=== PATIENT | male | born 1935 | race Two or more races ===

== ENCOUNTER 2023-11-01 17:14 | Inpatient (IN) | payer OTHER ==
[~2023-11-01] VITALS: Ht 167.6 cm; Wt 89.8 kg
--- NOTE | 2023-11-01 17:59 | NUR ---
PTE ALERTA Y ORIENTADO X3 EL CUAL VIENE EN COMPANIA DE PARAMDICOS Y FAMILIAR. AL MOMENTO FAMILIAR REFIERE QUE TRAEN PTE A CAUSA DE MELENA . SE MIDEN S/V Y SE UBICA.
--- NOTE | 2023-11-01 20:02 | NUR ---
SE RECIBE PTE ALERTA Y ORIENTADO A UNIDAD DE ICU-2, SE CANALIZA EN BRAZO IZQUERDO CON ANGIO #20, PTE VIENE CANALIZADO PREVIAMENTE EN BRAZO DERECHO CON ANGIO #20, AMBOS SE ENCUENTRAN PATENTES, LIBRES DE EDEMA Y ERITEMA. SE MANTIENE EN OBSERVACION POR CAMBIOS SINGIFICATIVOS.
[2023-11-01] MEDS ORDERED: OCTREOTIDE ACETATE 0.5 MG/ML (500MCG/ML) AMPUL IV ONE (20:45)
[2023-11-01] MEDS ORDERED: PANTOPRAZOLE SODIUM 40 MG/VIAL VIAL IV PUSH ONE (20:45)
[2023-11-01] MEDS ORDERED: RINGERS SOLUTION,LACTATED 1,000 ML IV SCH (20:45)
[2023-11-01 21:55] LABS: MEAN CELL VOLUME 97.3 fL (80.0-100.00); MEAN CORPUSCULAR HGB CONC 33.6 g/dl (32.0-36.0); PLATELET COUNT 192 K/uL (150-450); RED CELL DISTRIBUTION WIDTH 13.7 % (11.5-14.5)
[2023-11-01 22:07] LABS: HEMATOCRIT 17.5 % (39.0-48.0); HEMOGLOBIN 5.9 g/dL (13-16.00); MEAN CORPUSCULAR HEMOGLOBIN 32.7 pg (27.00-32.0)
[2023-11-01 22:09] LABS: INR 1.2; PARTIAL THROMBOPLASTIN TIME 21.5 SECONDS (22.0-34.0); PROTHROMBIN TIME 12.4 SECONDS (9.0-11.5)
[2023-11-01 22:13] LABS: ALBUMIN 2.5 gm/dL (3.4-5.0); BILIRUBIN TOTAL 0.36 mg/dL (0.3-1.2); CALCIUM 8.5 mg/dL (8.5-10.1); CREATININE SERUM 1.73 mg/dL (0.70-1.30); GFR 37.38; GLOBULINA 2.4 G/DL (2.4-3.5); POTASSIUM 4.64 mEq/L (3.5-5.1); TOTAL PROTEIN 4.9 gm/dL (6.4-8.2)
[2023-11-02] MEDS ORDERED: OCTREOTIDE ACETATE 1,250 MCG in 0.9 % SODIUM CHLORIDE 250 ML IV SCH (00:15)
[2023-11-02] MEDS ORDERED: PANTOPRAZOLE SODIUM 80 MG in 0.9 % SODIUM CHLORIDE 100 ML IV SCH (00:15)
[2023-11-02] MEDS ORDERED: METRONIDAZOLE/SODIUM CHLORIDE 500 MG/100 ML PIGGYBACK IV ONE (00:30)
--- NOTE | 2023-11-02 01:27 | NUR ---
11PM: SE RECIBE PACIENTE ALERTA Y DESORIENTADAO X3. EL MISMO CONECTADO A MONITOR CARDIACO Y OXIMETRIA DE PULSO. EL MISMO CON CANULA A 3 L/MIN Y HIPERVENTILANDO. EL MISMO CANALIZADO EN MANO ANDER # 20 PATENTE Y HANH DE DOLOR BAJANDO CON UN R/L @ 250 ML/HR. Y EN MANO DERECHA #22 PATENTE Y HANH DE DOLOR. EL MISMO PENDIENTE A CT SCAN ABDOMEN/ PELVICO Y CON 3ER TUBO PENDIENTE A REQUISICION DE MARLENE. EL MISMO CON COPELAND DRENANADO ORINA AMARILLA REYNOLD SIN HEMATURIA 11:25PM: SE CANALIZADA EN BRAZO DERECHO # 18 Y SE DEEP 3ER TUBO DE REQUISICION DE MARLENE. DR. PEREA LLEGA A LA UNIDAD CON TRANSFUCION DE MARLENE UNCROSSMATCHED RH O POSITIVO CON [phone]. SE NOTIFICA A DR. PEREA QUE EL PACIENTE NO TIENE CONSENTIMIENTO DE TRANSFUCION FIRMADO BIGG QUE LA FAMILIAR FUE LLAMADA PARA QUE LO FIRMARA. 11:30PM: SE COMIENZA TRANSFUCION DE MARLENE 12:10AM: FAMILIAR DE PACIENTE FIRMA CONSTIMIENTO DE TRANSFUCION Y DNR+DNI Y SE COLOCA STRONG A PACIENTE. 1AM: SE ENCUENTRA CANALIZACION DE PACIENTE # 18 EN BRAZO DERECHO DE PACIENTE INFILTRADO SE DETIENE INFUSION DE INMEDIATO Y SE REMUEVE ANGIO Y SE COLOCA SOLOSITE SE NOTIFICA A DR. PEREA. SE CANALIZA N[place]VAMENTA PACIENTE X2 #20 EN BRAZO DERECHO PATENTE Y SE CONTINUA TRANSFUCION. SE RESTRINGE PACIENTE X2 EN EXTREMIDADES SUPERIORES
[2023-11-02 01:50] LABS: URINE APPEARANCE Clear; URINE BILIRRUBIN Negative (NEGATIVE); URINE BLOOD Negative; URINE COLOR Yellow; URINE GLUCOSE Negative (NEGATIVE); URINE LEUKOCYTE Trace; URINE NITRATE Negative; URINE PROTEIN Negative (NEGATIVE); URINE UROBILINOGEN 0.2 E.U./dl
[2023-11-02 01:54] LABS: URINE EPITHELIAL CELLS 15.7 uL (0.0-38.8); URINE RBC 4.2 uL (0.0-20.8); URINE WBC 12.6 uL (0.0-23.2)
[2023-11-02] MEDS ORDERED: NOREPINEPHRINE BITARTRATE 8 MG in DEXTROSE 5 % IN WATER 250 ML IV SCH (05:30)
--- NOTE | 2023-11-02 05:59 | NUR ---
2:30AM: TERMINA TRANSFUCION DE MARLENE. 5AM PACIENTE PRESENTA EVENTO DE HIPOTENSION SE NOTIFICA A DR. LIVE EL MISMO ORDENA DRIP DE LEVOPHED 8MG/250ML
--- NOTE | 2023-11-02 06:48 | NUR ---
6:35AM: SE COMIENZA PRIMERA UNIDAD DE PRBC
[2023-11-02] MEDS ORDERED: ONDANSETRON HCL 4 MG in 0.9 % SODIUM CHLORIDE 50 ML IV PRN (08:00)
[2023-11-02] MEDS ORDERED: INSULIN LISPRO 1,000 UNIT/10 ML UNITS SUBCUTANEO PRN (08:15)
[2023-11-02] MEDS ORDERED: RINGERS SOLUTION,LACTATED 500 ML IV ONE (08:15)
[2023-11-02] MEDS ORDERED: PHYTONADIONE 10 MG/ML AMPUL IV ONE (08:15)
[2023-11-02] MEDS ORDERED: DEXTROSE 50 % IN WATER 0.5 G/ML DISP.SYRIN IV PRN (08:15)
[2023-11-02] MEDS ORDERED: MEROPENEM 500 MG/VIAL VIAL IV SCH (09:00)
[2023-11-02] MEDS ORDERED: DEXTROSE 50 % IN WATER 0.5 G/ML VIAL IV PRN (09:45)
[2023-11-02 10:34] LABS: ABG PH 7.379 (7.35-7.45); ABG pCO2 38.7 mmHg (35-45)
[2023-11-02 10:35] LABS: ABG PO2 52.7 mmHg (80-100); BASE EXCESS -2.4 mmol/l; SaO2 85.9 %
[2023-11-02 10:36] LABS: BICARBONATE 22.3 mmol/l (23-25); Tco2 23.5 mmol/l
[2023-11-02 10:37] LABS: allen test SATISFACTORY; o2 21 %; puncture site RADIAL RIGHT
[2023-11-02 13:52] LABS: C-REACTIVE PROTEIN 1.22 MG/DL (0.00-0.29)
[2023-11-02 14:06] LABS: FERRITIN 2182.4 NG/ML (26-388)
[2023-11-02] MEDS ORDERED: AA 4.25%/CAL/LYTES/DEXT 5% 1,000 ML PERIFERAL SCH (17:00)
[2023-11-02] MEDS ORDERED: REMDESIVIR 100 MG VIAL IV ONE (18:45)
[2023-11-03] MEDS ORDERED: OCTREOTIDE ACETATE 1,250 MCG in 0.9 % SODIUM CHLORIDE 250 ML IV SCH (01:00)
[2023-11-03 02:08] LABS: ob POSITIVE (NEGATIVE)
[2023-11-03 04:32] LABS: HEMATOCRIT 34.2 % (39.0-48.0); MEAN CELL VOLUME 88.2 fL (80.0-100.00); MEAN CORPUSCULAR HEMOGLOBIN 30.9 pg (27.00-32.0); MEAN CORPUSCULAR HGB CONC 35.1 g/dl (32.0-36.0); PLATELET COUNT 146 K/uL (150-450); RED BLOOD COUNT 3.88 M/uL (4.00-6.00); RED CELL DISTRIBUTION WIDTH 15.1 % (11.5-14.5)
[2023-11-03 05:15] LABS: CALCIUM 8.2 mg/dL (8.5-10.1); CREATININE SERUM 1.49 mg/dL (0.70-1.30); GFR 44.41; POTASSIUM 3.84 mEq/L (3.5-5.1)
[2023-11-03] MEDS ORDERED: REMDESIVIR 100 MG VIAL IV SCH (09:00)
[2023-11-04] MEDS ORDERED: LORazepam 2 MG/ML VIAL IV PUSH PRN (09:45)
[2023-11-04] MEDS ORDERED: LORazepam 2 MG/ML VIAL IV NR (09:45)
[2023-11-04 18:54] LABS: FERRITIN 529.7 NG/ML (26-388)
[2023-11-04] MEDS ORDERED: DEXAMETHASONE SODIUM PHOSPHATE 4 MG/ML VIAL IV SCH (20:28)
[2023-11-04 22:19] LABS: ABG PH 7.399 (7.35-7.45); ABG pCO2 38.6 mmHg (35-45); BASE EXCESS -1.2 mmol/l; BICARBONATE 23.3 mmol/l (23-25); SaO2 77.9 %; Tco2 24.5 mmol/l
[2023-11-04 22:29] LABS: ABG PO2 42.5 mmHg (80-100)
[2023-11-04 22:30] LABS: allen test SATISFACTORY; o2 21 %; puncture site RADIAL LEFT
[2023-11-05 06:51] LABS: HEMATOCRIT 30.6 % (39.0-48.0); HEMOGLOBIN 10.8 g/dL (13-16.00); MEAN CELL VOLUME 89.8 fL (80.0-100.00); MEAN CORPUSCULAR HEMOGLOBIN 31.7 pg (27.00-32.0); MEAN CORPUSCULAR HGB CONC 35.3 g/dl (32.0-36.0); RED CELL DISTRIBUTION WIDTH 15.3 % (11.5-14.5)
[2023-11-05 07:05] LABS: PLATELET COUNT 114 K/uL (150-450)
[2023-11-05 07:09] LABS: ALBUMIN 2.2 gm/dL (3.4-5.0); BILIRUBIN TOTAL 0.86 mg/dL (0.3-1.2); CALCIUM 7.7 mg/dL (8.5-10.1); CREATININE SERUM 0.87 mg/dL (0.70-1.30); GFR 82.62; POTASSIUM 4.11 mEq/L (3.5-5.1); TOTAL PROTEIN 4.2 gm/dL (6.4-8.2)
[2023-11-05] MEDS ORDERED: AMINO ACIDS 4.25 %/DEXTROSE 5% 1,000 ML PERIFERAL SCH (17:00)
[2023-11-05] MEDS ORDERED: DEXAMETHASONE SODIUM PHOSPHATE 4 MG/ML VIAL IV SCH (17:00)
[2023-11-05] MEDS ORDERED: MEROPENEM 500 MG/VIAL VIAL IV SCH (18:00)
[2023-11-05] MEDS ORDERED: PANTOPRAZOLE SODIUM 40 MG/VIAL VIAL IV SCH (21:00)
[2023-11-06 07:06] LABS: HEMOGLOBIN 10.9 g/dL (13-16.00); MEAN CELL VOLUME 90.2 fL (80.0-100.00); MEAN CORPUSCULAR HEMOGLOBIN 31.7 pg (27.00-32.0); MEAN CORPUSCULAR HGB CONC 35.2 g/dl (32.0-36.0); RED BLOOD COUNT 3.44 M/uL (4.00-6.00); RED CELL DISTRIBUTION WIDTH 15.1 % (11.5-14.5)
[2023-11-06 07:07] LABS: PLATELET COUNT 122 K/uL (150-450)
[2023-11-08 10:10] LABS: CALCIUM 7.9 mg/dL (8.5-10.1); CREATININE SERUM 0.76 mg/dL (0.70-1.30); GFR 96.57; POTASSIUM 4.56 mEq/L (3.5-5.1)
[2023-11-08 11:17] LABS: HEMATOCRIT 31.1 % (39.0-48.0); HEMOGLOBIN 10.7 g/dL (13-16.00); MEAN CELL VOLUME 90.6 fL (80.0-100.00); MEAN CORPUSCULAR HEMOGLOBIN 31.3 pg (27.00-32.0); MEAN CORPUSCULAR HGB CONC 34.5 g/dl (32.0-36.0); PLATELET COUNT 156 K/uL (150-450); RED BLOOD COUNT 3.43 M/uL (4.00-6.00); RED CELL DISTRIBUTION WIDTH 15.5 % (11.5-14.5)
[2023-11-10] MEDS ORDERED: ACETAMINOPHEN 500 MG GEL..CAP PO PRN (15:45)
[2023-11-10 17:59] LABS: HEMATOCRIT 35.2 % (39.0-48.0); HEMOGLOBIN 11.9 g/dL (13-16.00); MEAN CELL VOLUME 92.1 fL (80.0-100.00); MEAN CORPUSCULAR HEMOGLOBIN 31.2 pg (27.00-32.0); MEAN CORPUSCULAR HGB CONC 33.8 g/dl (32.0-36.0); PLATELET COUNT 237 K/uL (150-450); RED BLOOD COUNT 3.82 M/uL (4.00-6.00); RED CELL DISTRIBUTION WIDTH 15.2 % (11.5-14.5)
== END 2023-11-12 17:54 | disposition home or self-care (01) | DRG 377 ==
LOC: ER 17:14 → ICU-2 11-02 08:42 → ICU 11-04 03:11 → MEDJ 11-07 13:34
PROVIDERS: Emergency Medicine; General Practice; Student in an Organized Health Care Education/Training Program; ADMIT Internal Medicine; ATTEND Internal Medicine
PROC: 30233N1 Transfusion of Nonautologous Red Blood Cells into Peripheral Vein, Percutaneous Approach (ICD-10-PCS; principal; 2023-11-01)
PROC: BW21YZZ Computerized Tomography (CT Scan) of Abdomen and Pelvis using Other Contrast (ICD-10-PCS; 2023-11-01)
PROC: XW033E5 Introduction of Remdesivir Anti-infective into Peripheral Vein, Percutaneous Approach, New Technology Group 5 (ICD-10-PCS; 2023-11-02)
PROC: 8E0ZXY6 Isolation (ICD-10-PCS; 2023-11-02)
PROC: 02HV33Z Insertion of Infusion Device into Superior Vena Cava, Percutaneous Approach (ICD-10-PCS; 2023-11-04)
PROC: 3E0436Z Introduction of Nutritional Substance into Central Vein, Percutaneous Approach (ICD-10-PCS; 2023-11-04)
PROC: 4A12X4Z Monitoring of Cardiac Electrical Activity, External Approach (ICD-10-PCS; 2023-11-07)
PROC: B34KZZZ Ultrasonography of Bilateral Upper Extremity Arteries (ICD-10-PCS; 2023-11-11)
PROC: B54PZZZ Ultrasonography of Bilateral Upper Extremity Veins (ICD-10-PCS; 2023-11-11)
DX: K92.2 Gastrointestinal hemorrhage, unspecified (principal); J12.82 Pneumonia due to coronavirus disease 2019; R57.1 Hypovolemic shock; U07.1 COVID-19; R57.8 Other shock; N17.9 Acute kidney failure, unspecified; D50.0 Iron deficiency anemia secondary to blood loss (chronic); D72.829 Elevated white blood cell count, unspecified; R22.31 Localized swelling, mass and lump, right upper limb; I12.9 Hypertensive chronic kidney disease with stage 1 through stage 4 chronic kidney disease, or unspecified chronic kidney disease; E11.22 Type 2 diabetes mellitus with diabetic chronic kidney disease; N18.9 Chronic kidney disease, unspecified; Z88.0 Allergy status to penicillin; Z79.4 Long term (current) use of insulin